=== PATIENT | male | born 1965 | race African-American/Black ===

== ENCOUNTER 2024-07-25 11:55 | Emergency (ER) | payer OTHER ==
[~2024-07-25] VITALS: Ht 172.7 cm; Wt 80.0 kg
[~2024-07-25 11:55] MED LIST: AMLO5TAB88 PO; DEX6 MT; FAMO20TA8 PO; LOSA25TA26 PO; METH-371 MT; MONT-46 PO
[2024-07-25 11:57] VITALS: O2SAT 98
[2024-07-25] MEDS: HYDROCODONE/ACETAMINOPHEN 5/325MG TABLET PO ONE (14:35)
[2024-07-25] MEDS: FLUORESCEIN SODIUM 1MG/STRIP LEFTEYE ONE (15:31)
[2024-07-25] MEDS ORDERED: KETO5DRO80 LEFTEYE (15:32)
[2024-07-25] MEDS ORDERED: HYDR-4001 MT (15:32)
[2024-07-25] MEDS ORDERED: OCUFLX LEFTEYE (15:32)
[2024-07-25] MEDS ORDERED: IBUP-2029 MT (15:34)
[2024-07-25 17:00] VITALS: BP 135/85; PULSE 103; RESP 14; TEMP 36.7; O2SAT 98
== END 2024-07-25 17:05 | disposition home or self-care (01) ==
LOC: ER 12:13
DX: S02.2XXA Fracture of nasal bones, initial encounter for closed fracture (principal); S05.02XA Injury of conjunctiva and corneal abrasion without foreign body, left eye, initial encounter; J45.909 Unspecified asthma, uncomplicated; Z79.899 Other long term (current) drug therapy; Y04.0XXA Assault by unarmed brawl or fight, initial encounter; Y93.89 Activity, other specified; Y92.89 Other specified places as the place of occurrence of the external cause; Y99.8 Other external cause status
CPT/HCPCS: 70486; 99284

== ENCOUNTER 2024-07-29 20:59 | Emergency (ER) | payer OTHER ==
[~2024-07-29] VITALS: Ht 167.6 cm; Wt 100.0 kg
[~2024-07-29 20:59] MED LIST changes: +IBUP-2029 MT; +KETO5DRO80 LEFTEYE; +OCUFLX LEFTEYE
[2024-07-29 21:07] VITALS: O2SAT 100
[2024-07-29] MEDS ORDERED: NAPR-1176 MT (23:27)
[2024-07-29] MEDS: KETOROLAC 15MG/ML VIAL IM ONE (23:48)
[2024-07-30 00:03] VITALS: BP 160/76; PULSE 66; RESP 18; TEMP 36.9; O2SAT 100
== END 2024-07-30 00:25 | disposition home or self-care (01) ==
LOC: ER 20:59
DX: S05.00XA Injury of conjunctiva and corneal abrasion without foreign body, unspecified eye, initial encounter (principal); J45.909 Unspecified asthma, uncomplicated; Z79.1 Long term (current) use of non-steroidal anti-inflammatories (NSAID); Z79.899 Other long term (current) drug therapy; Y08.89XA Assault by other specified means, initial encounter; Y93.89 Activity, other specified; Y92.89 Other specified places as the place of occurrence of the external cause; Y99.8 Other external cause status
CPT/HCPCS: 99283; 96372; J1885